=== PATIENT | male | born 2000 | race Caucasian/White ===

== ENCOUNTER 2025-08-09 17:30 | Emergency (ER) | payer SELFPAY ==
[~2025-08-09] VITALS: Ht 177.8 cm; Wt 81.0 kg
[2025-08-09 17:32] VITALS: TEMP 36.6; O2SAT 100
[2025-08-09 18:15] LABS: BASOPHILS % 1.0 % (0.0-2.0); EOSINOPHILS % 3.1 % (0.0-5.0); HEMATOCRIT. 38.8 % (42.0-52.0); HEMOGLOBIN. 13.7 g/dL (14.0-18.0); LYMPHOCYTES % 22.1 % (20.0-50.0); MEAN PLATELET VOLUME 8.7 fl (7.4-10.4); MONOCYTES % 7.2 % (2.0-8.0); NEUTROPHILS % 66.6 % (40.0-76.0); PLATELET 213 x1000/uL (130-400); RED BLOOD CELL COUNT 4.51 mill/uL (4.7-6.1); RED CELL DISTRIBUTION WIDTH 13.1 % (11.6-14.6)
[2025-08-09 18:32] LABS: CREATININE 1.1 mg/dL (0.6-1.3); UREA NITROGEN BLOOD 11 mg/dL (9-23)
[2025-08-09 22:19] VITALS: BP 107/50; PULSE 66; RESP 14; O2SAT 96
== END 2025-08-09 22:34 | disposition home or self-care (01) ==
LOC: ER 17:30
DX: T50.901A Poisoning by unspecified drugs, medicaments and biological substances, accidental (unintentional), initial encounter (principal); F32.A Depression, unspecified; Z20.822 Contact with and (suspected) exposure to COVID-19; X58.XXXA Exposure to other specified factors, initial encounter; Y93.89 Activity, other specified; Y92.89 Other specified places as the place of occurrence of the external cause; Y99.8 Other external cause status
CPT/HCPCS: 36415; 80048; 80307; 80320; 80329; 85025; 87426; 99283; G0480